=== PATIENT | male | born 1960 | race Caucasian/White ===

== ENCOUNTER 2018-09-03 11:26 | Emergency (ER) | payer OTHER, MEDICAID ==
[~2018-09-03] VITALS: Ht 167.6 cm; Wt 65.0 kg
[2018-09-03] MEDS ORDERED: LISI-604 PO (11:48)
[2018-09-03] MEDS ORDERED: RANI150T7 PO (11:48)
[2018-09-03 13:30] LABS: BASOPHILS % 0.6 % (0.0-2.0); EOSINOPHILS % 6.4 % (0.0-5.0); HEMATOCRIT. 48.6 % (42.0-52.0); HEMOGLOBIN. 16.5 g/dL (14.0-18.0); LYMPHOCYTES % 24.1 % (20.0-50.0); MEAN CORPUSCULAR HEMOGLOBIN 30.1 pg (28.0-32.0); MEAN CORPUSCULAR VOLUME 88.5 fL (80.0-94.0); MEAN PLATELET VOLUME 8.3 fl (7.4-10.4); MONOCYTES % 12.1 % (2.0-8.0); NEUTROPHILS % 56.8 % (40.0-76.0); PLATELET 212 x1000/uL (130-400); RED BLOOD CELL COUNT 5.49 mill/uL (4.7-6.1); RED CELL DISTRIBUTION WIDTH 14.6 % (11.6-14.6)
[2018-09-03 13:37] LABS: CHLORIDE 108 mEq/L (98-107)
[2018-09-03 13:40] LABS: PARTIAL THROMBOPLASTIN TIME 26.3 sec (23.4-31.0); PROTHROMBIN TIME 10.4 sec (9.6-11.0)
[2018-09-03] MEDS ORDERED: KETOROLAC 30MG/ML VIAL IV STA (14:40)
[2018-09-03] MEDS ORDERED: MAGNESIUM/ALUMINUM HYDROXIDE/SIMETHICONE 30ML UDC PO ONE (14:45)
[2018-09-03] MEDS ORDERED: VISCOUS LIDOCAINE 2% 15 ML UDC PO ONE (14:45)
[2018-09-03 17:08] VITALS: BP 135/56
== END 2018-09-03 17:27 | disposition home or self-care (01) ==
LOC: ER 12:16
DX: K29.70 Gastritis, unspecified, without bleeding (principal); R07.89 Other chest pain; K21.9 Gastro-esophageal reflux disease without esophagitis; I10 Essential (primary) hypertension; Z86.73 Personal history of transient ischemic attack (TIA), and cerebral infarction without residual deficits; Z98.890 Other specified postprocedural states; Z79.899 Other long term (current) drug therapy
CPT/HCPCS: 36415; 71045; 80053; 83690; 83880; 84484; 85025; 85610; 85730; 93005; 96374; 99284; J1885

== ENCOUNTER 2021-11-20 13:17 | Emergency (ER) | payer MEDICAID, OTHER ==
[~2021-11-20] VITALS: Ht 165.1 cm; Wt 77.0 kg
[~2021-11-20 13:17] MED LIST: LISI20TA31 PO; RANI150T7 PO
[2021-11-20] MEDS ORDERED: ACETAMINOPHEN 325MG TABLET PO NR (14:00)
[2021-11-20 14:31] LABS: CHLORIDE 106 mEq/L (98-107)
[2021-11-20 14:32] LABS: BASOPHILS % 0.6 % (0.0-2.0); HEMATOCRIT. 40.3 % (42.0-52.0); HEMOGLOBIN. 14.4 g/dL (14.0-18.0); LYMPHOCYTES % 26.4 % (20.0-50.0); MEAN CORPUSCULAR HEMOGLOBIN 30.6 pg (28.0-32.0); MEAN CORPUSCULAR VOLUME 85.5 fL (80.0-94.0); MONOCYTES % 13.5 % (2.0-8.0); NEUTROPHILS % 55.5 % (40.0-76.0); PLATELET 180 x1000/uL (130-400); RED BLOOD CELL COUNT 4.72 mill/uL (4.7-6.1); RED CELL DISTRIBUTION WIDTH 14.7 % (11.6-14.6)
[2021-11-20 14:39] LABS: ETHANOL BLOOD < 10 mg/dL
[2021-11-20 14:43] LABS: INR 1.1; PROTHROMBIN TIME 11.3 sec (9.6-11.0)
[2021-11-20 14:50] LABS: CLARITY URINE CLEAR (CLEAR); COLOR URINE YELLOW (YELLOW); KETONES URINE NEGATIVE (NEGATIVE); LEUKOCYTE ESTERASE URINE NEGATIVE (NEGATIVE); NITRITE URINE NEGATIVE (NEGATIVE); OCCULT BLOOD URINE TRACE (NEGATIVE); PH URINE 6.5 (4.5-8.0); PROTEIN URINE NEGATIVE (NEGATIVE); SPECIFIC GRAVITY URINE 1.006 (1.005-1.030); UROBILINOGEN URINE 0.2 E.U./dL (0.2-1.0)
[2021-11-20 15:14] LABS: *AMPHETAMINES SCREEN URINE NEGATIVE (NEGATIVE); *BARBITURATES SCREEN URINE NEGATIVE (NEGATIVE); *BENZODIAZEPINES SCREEN URINE NEGATIVE (NEGATIVE); *COCAINE SCREEN URINE NEGATIVE (NEGATIVE); CANNABINOID URINE SCREEN NEGATIVE (NEGATIVE); METHADONE URINE SCREEN NEGATIVE (NEGATIVE); OPIATES URINE SCREEN NEGATIVE (NEGATIVE); PHENCYCLIDINE URINE SCREEN NEGATIVE (NEGATIVE)
[2021-11-20] MEDS ORDERED: CEPHALEXIN 250MG CAPSULE PO NR (16:15)
[2021-11-20 16:26] VITALS: BP 137/83
[2021-11-20] MEDS ORDERED: ACET-2708 MT (16:35)
[2021-11-20] MEDS ORDERED: ONDA4TAB50 MT (16:35)
[2021-11-20] MEDS ORDERED: CEPH500C2 MT (16:35)
== END 2021-11-20 16:45 | disposition home or self-care (01) ==
LOC: ER 14:33
DX: K57.90 Diverticulosis of intestine, part unspecified, without perforation or abscess without bleeding (principal); I10 Essential (primary) hypertension
CPT/HCPCS: 36415; 74176; 80053; 80305; 80320; 81003; 85025; 86850; 86900; 99284; G0480

== ENCOUNTER 2022-02-16 10:34 | Emergency (ER) | payer MEDICAID ==
[~2022-02-16] VITALS: Ht 167.6 cm; Wt 65.0 kg
[~2022-02-16 10:34] MED LIST changes: +ACET-2708 MT; +CEPH500C2 MT; +ONDA4TAB50 MT
[2022-02-16 12:33] LABS: BASOPHILS % 0.6 % (0.0-2.0); EOSINOPHILS % 6.5 % (0.0-5.0); HEMATOCRIT. 42.9 % (42.0-52.0); HEMOGLOBIN. 14.4 g/dL (14.0-18.0); LYMPHOCYTES % 22.3 % (20.0-50.0); MEAN CORPUSCULAR HEMOGLOBIN 29.4 pg (28.0-32.0); MEAN CORPUSCULAR VOLUME 87.4 fL (80.0-94.0); MEAN PLATELET VOLUME 8.2 fl (7.4-10.4); MONOCYTES % 13.7 % (2.0-8.0); NEUTROPHILS % 56.9 % (40.0-76.0); PLATELET 188 x1000/uL (130-400); RED BLOOD CELL COUNT 4.91 mill/uL (4.7-6.1); RED CELL DISTRIBUTION WIDTH 14.1 % (11.6-14.6)
[2022-02-16] MEDS ORDERED: TAM75 MT ×3 (12:53→13:10)
[2022-02-16] MEDS ORDERED: TUSSL MT (12:53)
[2022-02-16] MEDS ORDERED: PROT40 MT ×2 (13:08)
[2022-02-16 13:33] VITALS: BP 115/85
== END 2022-02-16 13:34 | disposition home or self-care (01) ==
LOC: ER 10:34
DX: B34.9 Viral infection, unspecified (principal); I10 Essential (primary) hypertension; E78.00 Pure hypercholesterolemia, unspecified; Z20.822 Contact with and (suspected) exposure to COVID-19; Z79.899 Other long term (current) drug therapy; Z86.73 Personal history of transient ischemic attack (TIA), and cerebral infarction without residual deficits
CPT/HCPCS: 36415; 71045; 83880; 84484; 85025; 87426; 99284; C9803

== ENCOUNTER 2023-08-29 17:04 | Emergency (ER) | payer MEDICAID ==
[~2023-08-29] VITALS: Ht 165.1 cm; Wt 69.0 kg
[~2023-08-29 17:04] MED LIST changes: +ASPI-1153 PO; +ATOR40TA70 PO; +CARB200T6 PO; -CEPH500C2 MT; +HYDR-3782 PO; +LISI10TA26 PO; -LISI20TA31 PO; +OMEP20TA23 PO; -ONDA4TAB50 MT; -RANI150T7 PO; +SERT-422 PO
[2023-08-29 17:09] VITALS: BP 119/71; PULSE 82; RESP 16; TEMP 97.5; O2SAT 97
[2023-08-29] MEDS ORDERED: ONDANSETRON HCL 4MG/2ML INJ IV STA (17:12)
[2023-08-29] MEDS ORDERED: MECLIZINE 25MG TABLET PO ONE (17:15)
[2023-08-29 17:53] LABS: BASOPHILS % 0.3 % (0.0-2.0); EOSINOPHILS % 0.5 % (0.0-5.0); HEMATOCRIT. 43.6 % (42.0-52.0); HEMOGLOBIN. 15.2 g/dL (14.0-18.0); LYMPHOCYTES % 10.8 % (20.0-50.0); MEAN CORPUSCULAR HEMOGLOBIN 30.5 pg (28.0-32.0); MEAN CORPUSCULAR HGB CONC 34.9 g/dL (31.0-37.0); MEAN CORPUSCULAR VOLUME 87.4 fL (80.0-94.0); MEAN PLATELET VOLUME 8.3 fl (7.4-10.4); MONOCYTES % 8.6 % (2.0-8.0); NEUTROPHILS % 79.8 % (40.0-76.0); PLATELET 227 x1000/uL (130-400); RED BLOOD CELL COUNT 4.99 mill/uL (4.7-6.1); RED CELL DISTRIBUTION WIDTH 14.7 % (11.6-14.6); WHITE BLOOD COUNT 13.8 x1000/uL (4.5-11.0)
[2023-08-29 17:56] LABS: CHLORIDE 104 mEq/L (98-107); POTASSIUM 3.3 mEq/L (3.5-5.1); SODIUM 133 mEq/L (136-145)
[2023-08-29 17:57] LABS: CALCIUM 8.7 mg/dL (8.7-10.4); CARBON DIOXIDE 19 mEq/L (21-32)
[2023-08-29 18:00] LABS: PROTHROMBIN TIME 11.6 sec (9.6-11.0)
[2023-08-29 18:02] LABS: CREATININE 0.9 mg/dL (0.6-1.3); GLUCOSE 133 mg/dL (70-105); UREA NITROGEN BLOOD 7 mg/dL (9-23)
[2023-08-29 18:03] LABS: TROPONIN I HIGH SENSITIVITY 45 ng/L (3.0-53)
[2023-08-29 18:04] LABS: ETHANOL BLOOD < 10 mg/dL (<10)
[2023-08-29] MEDS: MECLIZINE 12.5MG TABLET PO NR (18:50)
[2023-08-29] MEDS: SODIUM CHLORIDE 0.9% 1,000 ML IV ONE (18:50)
[2023-08-29] MEDS: ONDANSETRON HCL 4MG/2ML INJ IV NR (19:19)
[2023-08-29] MEDS ORDERED: ONDA4TAB11 PO (22:54)
[2023-08-29] MEDS ORDERED: IBUP-2029 MT (22:54)
[2023-08-29] MEDS ORDERED: AMOX1TAB16 MT (22:54)
[2023-08-29] MEDS ORDERED: [UNRECOGNIZED DRUG - CODE] OT (22:55)
== END 2023-08-30 00:16 | disposition home or self-care (01) ==
LOC: ER 17:04
DX: K63.89 Other specified diseases of intestine (principal); H61.20 Impacted cerumen, unspecified ear; K57.90 Diverticulosis of intestine, part unspecified, without perforation or abscess without bleeding; F41.9 Anxiety disorder, unspecified; K21.9 Gastro-esophageal reflux disease without esophagitis; E78.00 Pure hypercholesterolemia, unspecified; I10 Essential (primary) hypertension; Z86.73 Personal history of transient ischemic attack (TIA), and cerebral infarction without residual deficits
CPT/HCPCS: 80048; 80320; 85025; 85610; 84484; 36415; 71045; 70450; 74176; 93005; 96361; 96374; 99285; J8597; J2405; J7030; Z7610; G0480